=== PATIENT | male | born 1960 | race African-American/Black ===

== ENCOUNTER 2019-03-12 17:25 | Emergency (ER) | payer SELFPAY ==
[~2019-03-12] VITALS: Ht 180.3 cm; Wt 91.0 kg
[2019-03-12] MEDS ORDERED: SILVADENE1 % EX (18:54)
[2019-03-12] MEDS ORDERED: BACTRIM DS1 TAB PO (18:54)
[2019-03-12 19:09] VITALS: BP 159/98
== END 2019-03-12 19:15 | disposition home or self-care (01) | DRG 935 ==
LOC: ED 17:25
PROC: 2W2RX4Z Dressing of Left Lower Leg using Bandage (ICD-10-PCS; principal; 2019-03-12)
DX: T24.202A Burn of second degree of unspecified site of left lower limb, except ankle and foot, initial encounter (principal); T31.0 Burns involving less than 10% of body surface; E11.9 Type 2 diabetes mellitus without complications; X08.8XXA Exposure to other specified smoke, fire and flames, initial encounter; Y92.89 Other specified places as the place of occurrence of the external cause; Y99.0 Civilian activity done for income or pay